=== PATIENT | female | born 2005 | race African-American/Black ===

== ENCOUNTER 2024-08-04 22:01 | Emergency (ER) | payer OTHER ==
[~2024-08-04] VITALS: Ht 170.2 cm; Wt 77.3 kg
[2024-08-04 22:42] LABS: BASOPHILS % (AUTO) 0.5 % (0.0-2.0); EOSINOPHILS % (AUTO) 4.2 % (1.0-6.0); HEMATOCRIT 39.8 % (36-46); HEMOGLOBIN 13.1 g/dL (12.0-16.0); LYMPHOCYTES # (AUTO) 1.9 K/uL (1.0-4.8); LYMPHOCYTES % (AUTO) 23.3 % (22.0-44.0); MEAN CORPUSCULAR HEMOGLOBIN 29.7 pg (26.0-34.0); MEAN CORPUSCULAR HGB CONC 32.8 G/dL (31.0-37.0); MEAN CORPUSCULAR VOLUME 91 fL (80-100); MONOCYTES # (AUTO) 0.6 K/uL (0.1-1.0); MONOCYTES % (AUTO) 7.2 % (2.0-9.0); NEUTROPHILS # (AUTO) 5.3 K/uL (1.8-7.7); NEUTROPHILS % (AUTO) 64.8 % (40.0-70.0); PLATELET COUNT (AUTO) 330 K/uL (150-450); RED CELL DISTRIBUTION WIDTH 13.3 % (11.5-14.5); WHITE BLOOD COUNT (AUTO) 8.2 K/uL (4.5-11.0)
[2024-08-04 22:52] LABS: ANION GAP 9 mmol/L (8-16); CALCIUM, TOTAL 8.9 mg/dL (8.8-10.5); CARBON DIOXIDE 26 mmol/L (22-29); CHLORIDE 104 mmol/L (98-107); CREATININE 0.97 mg/dL (0.60-1.30); GLOMERULAR FILTR. RATE CALC > 60 mL/min (>60); GLUCOSE,RANDOM 86 mg/dL (70-110); POTASSIUM 4.3 mmol/L (3.5-5.1); SODIUM SERUM 139 mmol/L (136-145); UREA NITROGEN, BLOOD 13 mg/dL (7-18)
[2024-08-04 22:55] VITALS: TEMP 97.7
[2024-08-04] MEDS: PredniSONE 20 MG TABLET PO ONE (23:08)
[2024-08-04] MEDS: IPRATROPIUM BROMIDE 0.5 MG/2.5 ML NEB SOLUTION NEB ONE (23:22)
[2024-08-04] MEDS: ALBUTEROL SULFATE 2.5 MG/0.5 ML NEB SOLUTION NEB ONE (23:22)
[2024-08-04 23:23] LABS: COVID AG,FIA SOURCE NASAL SWAB
[2024-08-04 23:25] VITALS: PULSE 71; RESP 18; O2SAT 98
[2024-08-04 23:40] VITALS: PULSE 72; RESP 16; O2SAT 99
[2024-08-04 23:46] LABS: INFLUENZA TYPE A NEGATIVE FOR TYPE A (NEGATIVE); INFLUENZA TYPE B NEGATIVE FOR TYPE B (NEGATIVE); SARS-COV2 (COVID) ANTIGEN,FIA Negative (Negative)
[2024-08-05] MEDS ORDERED: PRED-554 PO (00:32)
[2024-08-05] MEDS ORDERED: ALBU18HF12 IH (00:32)
[2024-08-05 01:01] VITALS: BP 146/71; PULSE 68; RESP 15; O2SAT 100
== END 2024-08-05 01:04 | disposition home or self-care (01) ==
LOC: EMS 22:04
DX: J45.909 Unspecified asthma, uncomplicated (principal); Z20.822 Contact with and (suspected) exposure to COVID-19
CPT/HCPCS: 99285; 71045; 87426; 80048; 85025; 87804; 36415; 94640; J7512; J7613